=== PATIENT | male | born 1945 | race Caucasian/White ===

== ENCOUNTER 2016-08-08 05:56 | Day surgery (SDC) | payer BC ==
--- NOTE | ~2016-08-08 | EGD ---
EGD REPORT [facility] [address] [address] NAME: CLAYTON JOSEPH : [birth year] STATUS : REG [facility]#: [id number] AGE: 71 ADM/REG DATE : 08/08/16 MR#: [id number] REPORT SERV DATE: 08/08/16 DICTATED BY: HUANG KWONG DATE: 08/08/16 REPORT STATUS : Draft TRANSCRIBED BY: [facility] DATE: 08/08/16 [facility] Center Patient Name: Clayton Joseph Date of : 1945 Attending MD: HUANG KWONG MD Procedure Date No Time: 08/08/2016 Procedure: Colonoscopy Indications: High risk colon cancer surveillance: Personal history of colonic polyps Referring MD: [place] MD Medicines: Monitored Anesthesia Care Complications: No immediate complications. Procedure: Pre-Anesthesia Assessment: - ASA Grade Assessment: III - A patient with severe systemic disease. After I obtained informed consent, the scope was passed under direct vision. Throughout the procedure, the patient's blood pressure, pulse, and oxygen saturations were monitored continuously. The CF [id number] was introduced through the anus and advanced to the cecum, identified by appendiceal orifice and ileocecal valve. The colonoscopy was performed without difficulty. The patient tolerated the procedure well. The quality of the bowel preparation was fair. Findings: The digital rectal exam was normal. Pertinent negatives include no palpable rectal lesions. Hemorrhoids were found during retroflexion and were moderate. A few diverticula were found in the sigmoid colon. Impression: - Hemorrhoids. Recommendation: - Patient has a contact number available for emergencies. The signs and symptoms of potential delayed complications were discussed with the patient. Return to normal activities tomorrow. Written discharge instructions were provided to the patient. - Regular diet. - Continue present medications. - Repeat colonoscopy in 3 years for surveillance. - Return to GI clinic PRN. Procedure Code(s): --- Professional --- 68836, Colonoscopy, flexible, proximal to splenic EGD REPORT [facility] [address] [place] [address] NAME: CLAYTON JOSEPH : [birth year] STATUS : REG [facility] [place] PAT#: [id number] AGE: 71 ADM/REG DATE : 08/08/16 MR#: [id number] REPORT SERV DATE: 08/08/16 DICTATED BY: HUANG KWONG DATE: 08/08/16 REPORT STATUS : Draft TRANSCRIBED BY: [email or web address] SERVICES DATE: 08/08/16 flexure; diagnostic, with or without collection of specimen(s) by brushing or washing, with or without colon decompression (separate procedure) Diagnosis Code(s): --- Professional --- K64.9, Unspecified hemorrhoids Z86.010, Personal history of colonic polyps CPT copyright 2013 [employer]. All rights reserved. The codes documented in this report are preliminary and upon grocery stocker review may be revised to meet current compliance requirements. HUANG KWONG MD 08/08/2016 8:46 AM This report has been signed electronically. Number of Addenda: 0 Note Initiated On: 08/08/2016 8:11 AM Scope Withdrawal Time 0 hours 6 minutes 10 seconds [address] [place] [address]
[~2016-08-08 05:56] MED LIST: ASAB PO; FISH OIL1200 MG PO; GLUCOPHAGE1000 MG PO; IMDUR30 PO; LAM250 PO; NORV5 PO; PLAVIX PO; VITAMIN D31000 UNIT PO; [UNRECOGNIZED DRUG - OTHER] PO
== END 2016-08-08 23:59 | disposition home or self-care (01) ==
LOC: DMU 05:56
PROVIDERS: Internal Medicine Gastroenterology
PROC: 0DJD8ZZ Inspection of Lower Intestinal Tract, Via Natural or Artificial Opening Endoscopic (ICD-10-PCS; principal; 2016-08-08 08:00)
DX: Z12.11 Encounter for screening for malignant neoplasm of colon (principal); K64.9 Unspecified hemorrhoids; I10 Essential (primary) hypertension; E11.9 Type 2 diabetes mellitus without complications; L40.9 Psoriasis, unspecified; I25.10 Atherosclerotic heart disease of native coronary artery without angina pectoris; M06.9 Rheumatoid arthritis, unspecified; I21.3 ST elevation (STEMI) myocardial infarction of unspecified site; R01.1 Cardiac murmur, unspecified; Z96.653 Presence of artificial knee joint, bilateral; Z86.010 Personal history of colon polyps; Z87.891 Personal history of nicotine dependence; Z98.890 Other specified postprocedural states
CPT/HCPCS: 82962